=== PATIENT | female | born 1985 | race Two or more races ===

== ENCOUNTER 2023-10-08 10:39 | Outpatient (CLI) | payer OTHER, SELFPAY ==
[2023-10-08 11:05] LABS: Eosinophils # 0.6 10^3/uL (0.0-0.8); Eosinophils % 8.7 %; Hematocrit 37.8 % (36-47); Lymphocytes # 2.1 10^3/uL (0.8-4.8); Lymphocytes % 29.6 %; Mean Corpuscular HGB Conc 32.3 g/dL (30-55); Mean Corpuscular Volume 89.8 fl (85-98); Mean Platelet Volume 9.5 fL (7.4-10.4); Monocytes # 0.3 10^3/uL (0.2-0.9); Monocytes % 4.6 %; Neutrophils # 3.97 10^3/uL (1.8-7.7); Neutrophils % 56.8 %; Nucleated Red Blood Cells % 0 %; Platelet Count 292 10^3/cmm (157-399); Red Blood Count 4.21 10^6/uL (3.85-5.65); Red Cell Distribution Width 12.6 % (12.1-15.1); White Blood Count 6.99 10^3/uL (3.29-11.43)
[2023-10-08 11:29] LABS: Ferritin 42 ng/mL (15-150)
[2023-10-08 11:32] LABS: Free T4 Free Thyroxine 1.13 ng/dL (0.82-1.77); Testosterone Total 17.1 ng/dL (8.4-48.1)
[2023-10-08 11:46] LABS: Vitamin B12 853 pg/mL (232-1245)
[2023-10-08 11:59] LABS: Folate Level 16.2 ng/mL (4.8-37.3)
[2023-10-11 13:25] LABS: Thyroid Peroxidase Antobodies 1 IU/mL (<9)
== END 2023-10-08 10:40 | disposition home or self-care (01) ==
LOC: LAB 10:40
PROVIDERS: Visit Provider Nurse Practitioner Family
DX: L65.0 Telogen effluvium (principal)
CPT/HCPCS: 36415; 82607; 82728; 82746; 84402; 84403; 84439; 85025; 86376

== ENCOUNTER → 2023-11-18 10:06 | Outpatient (BNVA) | payer OTHER, SELFPAY | PROVIDERS: Visit Provider Nurse Practitioner Family | DX: L63.0 Alopecia (capitis) totalis (principal) | CPT/HCPCS: 11900; 99214 ==

== ENCOUNTER 2023-12-02 11:33 | Outpatient (CLI) | payer OTHER, SELFPAY ==
[2023-12-02 12:23] LABS: Alanine Aminotransferase 16 U/L (0-33); Albumin Level 4.3 g/dL (3.5-5.2); Alkaline Phosphatase 82 U/L (35-105); Aspartate Amino Transferase 20 U/L (0-32); Chol HDL Ratio 3.13 mg/dL (0.0-4.40); Cholesterol 225 mg/dL (0-200); Globulin 2.6 g/dL (1.3-4.6); HDL Cholesterol 72 mg/dL (60-100); LDL Cholesterol Calculated 122 mg/dL (50-129); LDL HDL Ratio 1.69 RATIO (0.00-3.22); Total Bilirubin 0.2 mg/dL (0.15-1.2); Total Protein 6.9 g/dL (6.6-8.7); Triglycerides 157 mg/dL (0-150)
[2023-12-02 12:47] LABS: Hepatitis A Antibody IgM Non-Reactive (Nonreactive); Hepatitis B Core AB, Total Non-Reactive (Nonreactive); Hepatitis B Surface AB 90.1 (11.5-1000); Hepatitis B Surface Antigen Non-Reactive (Nonreactive); Hepatitis C Virus Antibody Non-Reactive (Nonreactive)
[2023-12-03 15:20] LABS: Anti-Nuclear Antibody Screen NEGATIVE (NEGATIVE)
== END 2023-12-02 11:34 | disposition home or self-care (01) ==
LOC: LAB 11:36
PROVIDERS: PCP Internal Medicine
DX: L63.0 Alopecia (capitis) totalis (principal)
CPT/HCPCS: 36415; 80061; 80076; 84630; 86038; 86480; 86705; 86706; 86709; 86803; 87340

== ENCOUNTER → 2023-12-16 15:15 | Outpatient (BNVA) | payer OTHER, SELFPAY | PROVIDERS: PCP Internal Medicine; Visit Provider Dermatology | DX: L63.1 Alopecia universalis (principal); L63.8 Other alopecia areata | CPT/HCPCS: 99214 ==

== ENCOUNTER → 2024-01-27 14:45 | Outpatient (BNVA) | payer OTHER, SELFPAY | PROVIDERS: PCP Internal Medicine; Visit Provider Dermatology | DX: L63.1 Alopecia universalis (principal); L63.8 Other alopecia areata | CPT/HCPCS: 99214 ==

== ENCOUNTER → 2024-04-27 13:16 | Outpatient (BNVA) | payer OTHER, SELFPAY | PROVIDERS: PCP Internal Medicine; Visit Provider Dermatology | DX: L63.0 Alopecia (capitis) totalis (principal) | CPT/HCPCS: 99214 ==

== ENCOUNTER 2024-06-29 15:31 | Outpatient (CLI) | payer OTHER, SELFPAY ==
[2024-06-30 14:00] LABS: Chol HDL Ratio 3.74 mg/dL (0.0-4.40); Cholesterol 202 mg/dL (0-200); HDL Cholesterol 54 mg/dL (60-100); LDL Cholesterol Calculated 111 mg/dL (50-129); LDL HDL Ratio 2.06 RATIO (0.00-3.22); Triglycerides 186 mg/dL (0-150)
== END 2024-06-29 15:32 | disposition home or self-care (01) ==
PROVIDERS: PCP Internal Medicine; Visit Provider Dermatology
DX: Z79.899 Other long term (current) drug therapy (principal); L63.1 Alopecia universalis
CPT/HCPCS: 80061

== ENCOUNTER 2024-11-13 12:32 | Outpatient (CLI) | payer OTHER, SELFPAY ==
[2024-11-13 13:23] LABS: Cholesterol 221 mg/dL (0-200); HDL Cholesterol 58 mg/dL (60-100); Triglycerides 176 mg/dL (0-150)
== END 2024-11-13 12:33 | disposition home or self-care (01) ==
PROVIDERS: PCP Internal Medicine; Visit Provider Dermatology
DX: L63.1 Alopecia universalis (principal); L63.8 Other alopecia areata; Z79.899 Other long term (current) drug therapy
CPT/HCPCS: 36415; 80061; 99214

== ENCOUNTER → 2025-03-05 09:27 | Outpatient (BNVA) | payer OTHER, SELFPAY | PROVIDERS: PCP Internal Medicine; Visit Provider Dermatology | DX: L93.1 Subacute cutaneous lupus erythematosus (principal); L63.8 Other alopecia areata; Z79.899 Other long term (current) drug therapy | CPT/HCPCS: 99214 ==